=== PATIENT | female | born 1980 | race African-American/Black ===

== ENCOUNTER 2021-10-15 17:47 | Inpatient (IN) | payer MEDICAID, OTHER ==
[~2021-10-15] VITALS: Ht 160 cm; Wt 100.2 kg
[2021-10-15] MEDS ORDERED: CARBOPROST TROMETHAMINE 250 MCG/ML AMPUL IM PRN (18:15)
[2021-10-15] MEDS ORDERED: MISOPROSTOL 100MCG TABLET VG PRN (18:15)
[2021-10-15] MEDS ORDERED: METHYLERGONOVINE MALEATE 0.2 MG/ML IM PRN (18:15)
[2021-10-15 18:47] LABS: CLARITY URINE CLOUDY (CLEAR); COLOR URINE YELLOW (YELLOW); KETONES URINE NEGATIVE (NEGATIVE); LEUKOCYTE ESTERASE URINE TRACE (NEGATIVE); NITRITE URINE NEGATIVE (NEGATIVE); OCCULT BLOOD URINE NEGATIVE (NEGATIVE); PROTEIN URINE NEGATIVE (NEGATIVE); SPECIFIC GRAVITY URINE 1.007 (1.005-1.030); UROBILINOGEN URINE 0.2 E.U./dL (0.2-1.0)
[2021-10-15] MEDS ORDERED: CITRIC ACID/SODIUM CITRATE SOLN 30ML UDC PO NR (19:00)
[2021-10-15 19:07] LABS: CHLORIDE 109 mEq/L (98-107)
[2021-10-15 19:09] LABS: HEMATOCRIT 31.2 % (36.0-48.0); HEMOGLOBIN 9.8 g/dL (12.0-16.0); MEAN CORPUSCULAR HEMOGLOBIN 21.6 pg (28.0-32.0); MEAN CORPUSCULAR VOLUME 68.8 fL (81.0-99.0); PLATELET 278 x1000/uL (130-400); RED BLOOD CELL COUNT 4.53 mill/uL (4.2-5.4); RED CELL DISTRIBUTION WIDTH 16.8 % (11.6-14.6)
[2021-10-15] MEDS: LACTATED RINGERS 1,000 ML IV SCH (19:14)
[2021-10-15 19:19] LABS: *AMPHETAMINES SCREEN URINE NEGATIVE (NEGATIVE); *BARBITURATES SCREEN URINE NEGATIVE (NEGATIVE); *BENZODIAZEPINES SCREEN URINE NEGATIVE (NEGATIVE); *COCAINE SCREEN URINE NEGATIVE (NEGATIVE); CANNABINOID URINE SCREEN NEGATIVE (NEGATIVE); METHADONE URINE SCREEN NEGATIVE (NEGATIVE); OPIATES URINE SCREEN NEGATIVE (NEGATIVE); PHENCYCLIDINE URINE SCREEN NEGATIVE (NEGATIVE)
[2021-10-15 19:22] LABS: INR 0.9; PARTIAL THROMBOPLASTIN TIME 27.3 sec (23.4-31.0); PROTHROMBIN TIME 9.8 sec (9.6-11.0)
[2021-10-15] MEDS ORDERED: MORPHINE SULFATE/PF 1MG/ML 10ML AMP ONE (19:39)
[2021-10-15 19:47] LABS: HEPATITIS B SURFACE ANTIGEN NEGATIVE
[2021-10-15] MEDS ORDERED: KETOROLAC 60MG/2ML VIAL IM ONE (20:17)
[2021-10-15] MEDS ORDERED: OXYTOCIN 10 UNITS/ML 1ML ONE (20:19)
[2021-10-15] MEDS ORDERED: DEXAMETHASONE 4MG/ML 1ML VIAL ONE (20:19)
[2021-10-15] MEDS ORDERED: CEFAZOLIN SODIUM 1000MG/VIAL ONE (20:19)
[2021-10-15] MEDS ORDERED: ONDANSETRON HCL 4MG/2ML INJ ONE (20:19)
[2021-10-15] MEDS ORDERED: FENTANYL CITRATE/PF 50MCG/ML 2ML VIAL IV PRN (20:30)
[2021-10-15] MEDS ORDERED: NALOXONE HCL 0.4 MG/ML 1ML VIAL IV PRN (20:30)
[2021-10-15] MEDS ORDERED: MORPHINE SULFATE 4 MG/ML CPJ (NOT FOR IM USE) IV PRN (20:30)
[2021-10-15] MEDS ORDERED: BISACODYL 10MG SUPP PR PRN (20:45)
[2021-10-15] MEDS ORDERED: DIPHENHYDRAMINE 25MG CAPSULE PO PRN (20:45)
[2021-10-15] MEDS ORDERED: IBUPROFEN 400MG TABLET PO PRN (20:45)
[2021-10-15] MEDS ORDERED: LANOLIN OINT 7GM TUBE TOP PRN (20:45)
[2021-10-15] MEDS ORDERED: ONDANSETRON HCL 4MG/2ML INJ IV PRN (20:45)
[2021-10-15] MEDS ORDERED: HEMORRHOIDAL SUPP PR PRN (20:45)
[2021-10-15] MEDS ORDERED: RHO(D) IMMUNE GLOBULIN 300 MCG/SYR IM PRN (20:45)
[2021-10-15] MEDS ORDERED: OXYTOCIN 30 UNITS/500ML NS PMX 500 ML IV SCH (20:45)
[2021-10-15] MEDS: INSULIN LISPRO 100 UNITS/ML SUBCUT SCH (21:00)
[2021-10-15] MEDS ORDERED: DEXTROSE 50% WATER 50ML SYRINGE IV PRN (21:00)
[2021-10-15] MEDS: SIMETHICONE 80MG TABLET CHEW PO SCH (21:00)
[2021-10-15] MEDS: DOCUSATE SODIUM 100MG CAPSULE PO SCH (21:00)
[2021-10-15] MEDS: BLOOD SUGAR DIAGNOSTIC STRIP TEST SCH (21:00)
[2021-10-15] MEDS: MAGNESIUM/ALUMINUM HYDROXIDE/SIMETHICONE 30ML UDC PO SCH (21:00)
[2021-10-15] MEDS ORDERED: KETOROLAC 30MG/ML VIAL IV NR (22:15)
[2021-10-15] MEDS ORDERED: NALOXONE HCL 0.4MG/ML VIAL IV PRN (22:30)
[2021-10-16] VITALS: BP 136/79
[2021-10-16 04:00] VITALS: BP 110/63
[2021-10-16] MEDS: KETOROLAC 30MG/ML VIAL IV PRN ×2 (05:42→11:30)
[2021-10-16] MEDS: SIMETHICONE 80MG TABLET CHEW PO SCH ×3 (06:31→20:30)
[2021-10-16] MEDS ORDERED: BUPR-102 MT (06:37)
[2021-10-16] MEDS ORDERED: OLAN10TA3 PO (06:40)
[2021-10-16] MEDS ORDERED: NALT50TA MT (06:44)
[2021-10-16] MEDS ORDERED: LEVVL SQ ×2 (06:48→06:49)
[2021-10-16] MEDS ORDERED: INSLIS SUBCUT (06:53)
[2021-10-16 06:57] LABS: BASOPHILS % 0.1 % (0.0-2.0); HEMATOCRIT. 28.8 % (36.0-48.0); HEMOGLOBIN. 8.9 g/dL (12.0-16.0); LYMPHOCYTES % 14.1 % (20.0-50.0); MEAN CORPUSCULAR HEMOGLOBIN 21.4 pg (28.0-32.0); MEAN PLATELET VOLUME 8.9 fl (7.4-10.4); MONOCYTES % 7.1 % (2.0-8.0); NEUTROPHILS % 78.7 % (40.0-76.0); PLATELET 243 x1000/uL (130-400); RED BLOOD CELL COUNT 4.17 mill/uL (4.2-5.4); RED CELL DISTRIBUTION WIDTH 16.8 % (11.6-14.6)
[2021-10-16] MEDS: BLOOD SUGAR DIAGNOSTIC STRIP TEST SCH (07:13)
[2021-10-16] MEDS: INSULIN LISPRO 100 UNITS/ML SUBCUT SCH ×2 (07:30→22:11)
[2021-10-16 07:55] VITALS: BP 113/58
[2021-10-16] MEDS: LACTATED RINGERS 1,000 ML IV SCH (13:46)
[2021-10-16 16:20] VITALS: BP 107/55
[2021-10-16] MEDS: IBUPROFEN 800MG TABLET PO PRN ×2 (18:05→23:51)
[2021-10-16] MEDS: MAGNESIUM/ALUMINUM HYDROXIDE/SIMETHICONE 30ML UDC PO SCH ×2 (18:06→20:31)
[2021-10-16] MEDS: FERROUS SULFATE 325MG TABLET PO SCH (18:06)
[2021-10-16 18:08] LABS: PLATELET ESTIMATE NORMAL
[2021-10-16 20:00] VITALS: BP 109/59
[2021-10-16] MEDS: ACETAMINOPHEN WITH CODEINE 300/30MG TABLET PO PRN (20:30)
[2021-10-16] MEDS ORDERED: NALTREXONE HCL 50MG TABLET PO SCH (20:30)
[2021-10-16] MEDS: DOCUSATE SODIUM 100MG CAPSULE PO SCH (20:31)
[2021-10-16] MEDS: BUPROPION HCL 150MG TABLET XL 24HR PO SCH (21:27)
[2021-10-16] MEDS: OLANZAPINE 5MG TABLET ODT PO SCH (21:28)
[2021-10-17] MEDS: LABETALOL HCL 200MG TABLET PO SCH ×2 (00:15→16:23)
[2021-10-17] MEDS: ACETAMINOPHEN WITH CODEINE 300/30MG TABLET PO PRN ×2 (01:54→11:01)
[2021-10-17 04:00] VITALS: BP 113/55
[2021-10-17] MEDS: IBUPROFEN 800MG TABLET PO PRN ×2 (06:09→17:58)
[2021-10-17 07:35] VITALS: BP 149/60
[2021-10-17 08:00] VITALS: BP 139/70
[2021-10-17] MEDS: PRENATAL VIT/FE FUMARATE/FA TABLET PO SCH (09:25)
[2021-10-17] MEDS: FERROUS SULFATE 325MG TABLET PO SCH ×2 (09:26→17:44)
[2021-10-17] MEDS: MAGNESIUM/ALUMINUM HYDROXIDE/SIMETHICONE 30ML UDC PO SCH ×2 (09:26→17:44)
[2021-10-17] MEDS: SIMETHICONE 80MG TABLET CHEW PO SCH ×3 (09:26→21:29)
[2021-10-17] MEDS: BLOOD SUGAR DIAGNOSTIC STRIP TEST SCH ×2 (12:00→17:00)
[2021-10-17] MEDS: INSULIN LISPRO 100 UNITS/ML SUBCUT SCH ×2 (12:30→17:30)
[2021-10-17 16:00] VITALS: BP 160/93
[2021-10-17] MEDS: BUPROPION HCL 150MG TABLET XL 24HR PO SCH (17:47)
[2021-10-17] MEDS: OLANZAPINE 5MG TABLET ODT PO SCH ×2 (17:47→21:29)
[2021-10-17 17:50] VITALS: BP 127/77
[2021-10-17 19:00] VITALS: BP 125/65
[2021-10-17] MEDS: DOCUSATE SODIUM 100MG CAPSULE PO SCH (21:28)
[2021-10-18 00:15] VITALS: BP 119/65
[2021-10-18] MEDS: DOCUSATE SODIUM 100MG CAPSULE PO SCH (00:15)
[2021-10-18] MEDS: SIMETHICONE 80MG TABLET CHEW PO SCH ×2 (00:15→08:58)
[2021-10-18] MEDS: IBUPROFEN 800MG TABLET PO PRN ×2 (00:15→06:42)
[2021-10-18] MEDS: MAGNESIUM/ALUMINUM HYDROXIDE/SIMETHICONE 30ML UDC PO SCH ×2 (00:16→08:57)
[2021-10-18 04:00] VITALS: BP 125/66
[2021-10-18 08:12] VITALS: BP 117/63
[2021-10-18] MEDS: PRENATAL VIT/FE FUMARATE/FA TABLET PO SCH (08:57)
[2021-10-18] MEDS: FERROUS SULFATE 325MG TABLET PO SCH (08:57)
[2021-10-18] MEDS ORDERED: IBUP-2030 MT (10:41)
[2021-10-18 11:00] VITALS: BP 119/72
== END 2021-10-18 14:00 | disposition home or self-care (01) | DRG 539 ==
LOC: 8 EST LDRP 17:47 → OBSVTOIN 17:47 → 8EST 23:10
PROVIDERS: ADMIT Obstetrics & Gynecology; ATTEND Obstetrics & Gynecology
PROC: 10D00Z1 Extraction of Products of Conception, Low, Open Approach (ICD-10-PCS; principal; 2021-10-15)
PROC: 0UB70ZZ Excision of Bilateral Fallopian Tubes, Open Approach (ICD-10-PCS; 2021-10-15)
DX: O13.4 Gestational [pregnancy-induced] hypertension without significant proteinuria, complicating childbirth (principal); O60.14X0 Preterm labor third trimester with preterm delivery third trimester, not applicable or unspecified; O34.211 Maternal care for low transverse scar from previous cesarean delivery; O99.02 Anemia complicating childbirth; O24.420 Gestational diabetes mellitus in childbirth, diet controlled; O99.214 Obesity complicating childbirth; Z37.0 Single live birth; Z3A.36 36 weeks gestation of pregnancy; Z30.2 Encounter for sterilization
CPT/HCPCS: 36415; 80053; 80305; 80359; 81003; 82962; 83036; 85025; 85027; 86592; 86703; 86762; 86850; 86900; 86920; 87340; 87426; 88302; 88307; G0378; J0690; J1100; J1815; J1885; J2274; J2405